=== PATIENT | male | born 1970 | race Caucasian/White ===

== ENCOUNTER 2025-03-02 09:42 | Emergency (ER) | payer MEDICAID ==
[~2025-03-02] VITALS: Ht 167.6 cm; Wt 77.0 kg
[2025-03-02 09:45] VITALS: BP 142/78; PULSE 78; RESP 16; TEMP 37.1; O2SAT 99
== END 2025-03-02 13:30 | disposition home or self-care (01) ==
LOC: ER 09:42
DX: H91.92 Unspecified hearing loss, left ear (principal)
CPT/HCPCS: 99283